=== PATIENT | male | born 1940 | race Caucasian/White ===

== ENCOUNTER 2016-12-08 10:39 | Emergency (ER) | payer MEDICARE ==
[~2016-12-08 10:39] MED LIST: AEROBID7 GM; ALBUTEROL17 GM; ASMANEX0; DUONEB 2.5-0.5 M3 ML IH; FORADIL12 MCG; LISINOPRIL-HC; LISINOPRIL20 MG; PREDNISONE10 MG PO
[2016-12-08] MEDS ORDERED: COZAAR100 M1 PO (10:50)
[2016-12-08] MEDS ORDERED: EYE (10:51)
[2016-12-08] MEDS ORDERED: VITAMINS (10:51)
[2016-12-08] MEDS ORDERED: METFORMIN (10:51)
[2016-12-08] MEDS ORDERED: ACE AEROSOL CL1 EACH (10:52)
== END 2016-12-08 12:16 ==
LOC: EDMED 10:39
PROC: 0S9D3ZZ Drainage of Left Knee Joint, Percutaneous Approach (ICD-10-PCS; principal; 2016-12-08)
DX: M25.462 Effusion, left knee (principal); E11.9 Type 2 diabetes mellitus without complications; I10 Essential (primary) hypertension; Z79.899 Other long term (current) drug therapy
CPT/HCPCS: J1040